=== PATIENT | male | born 1945 | race Caucasian/White ===

== ENCOUNTER 2023-09-26 16:04 | Emergency (ER) | payer OTHER, MEDICARE ==
[2023-09-26 16:11] VITALS: BP 135/61; PULSE 66; RESP 18; TEMP 98.3; BMI 28.0
[2023-09-26] MEDS ORDERED: ACETAMINOPHEN 500 MG TABLET (FP) ONE (17:34)
[2023-09-26] MEDS: ACETAMINOPHEN 500 MG TABLET (FP) PO ONE (17:42)
== END 2023-09-26 18:29 | disposition home or self-care (01) ==
LOC: JERFT 16:04
DX: M25.511 Pain in right shoulder (principal)
CPT/HCPCS: 73030-TC-RT-FY; 93005; 93010; 99284-25